=== PATIENT | female | born 1950 | race Caucasian/White ===

== ENCOUNTER 2018-12-11 18:37 | Emergency (ER) | payer MEDICARE ==
[2018-12-11 19:14] LABS: #Basophils 0.1 thou/uL (0.0-0.2); #Lymphocytes 1.5 thou/uL (1.20-3.40); #Monocytes 0.3 thou/uL (0.11-0.59); #Neutrophils 3.5 thou/uL (1.40-6.50); %Basophils 0.9 % (0.0-1.0); %Eosinophils 0.9 % (0.0-10.0); %Lymphocytes 27.3 % (21.0-51.0); %Monocytes 6.2 % (0.0-10.0); %Neutrophils 64.8 % (42.0-75.0); Hemoglobin 15.7 g/dL (12.0-16.0); Mean Corpuscular HGB CONC 30.6 g/dL (32.0-36.0); Mean Corpuscular Hemoglobin 30.2 pg (27.0-31.0); Mean Corpuscular Volume 98.8 fL (78.0-98.0); Mean Platelet Volume 7.9 fL (7.4-10.4); Platelet Count 167 thou/uL (130-400); RBC Distribution Width 15.1 % (11.5-14.5); White Blood Cell (WBC) Count 5.5 thou/uL (4.8-10.8)
[2018-12-11 19:28] LABS: ALT (SGPT) 15 U/L (8-55); AST (SGOT) 15 U/L (5-34); Albumin 4.2 g/dL (3.4-4.8); Alkaline Phosphatase 71 U/L (40-150); Anion Gap 14 mmol/L (10-20); BUN (Urea Nitrogen) 14 mg/dL (9.8-20.1); Bilirubin, Total 0.3 mg/dL (0.2-1.2); Calc. Creatinine Clearance 0 mL/min (70-130); Carbon Dioxide 31 mmol/L (23-31); Chloride 105 mmol/L (98-107); Estimated GFR-MDRD 71; Globulin 2.7 g/dL (2.4-3.5); Glucose 95 mg/dL (80-115); Potassium 3.5 mmol/L (3.5-5.1); Protein, Total 6.9 g/dL (6.0-8.3); Sodium 146 mmol/L (136-145)
[2018-12-11] MEDS ORDERED: Albuterol Sulfate 1.25 MG/3 ML NEB ONE (19:46)
[2018-12-11] MEDS ORDERED: Azithromycin 500 MG VIAL ONE (20:16)
[2018-12-11] MEDS ORDERED: methylPREDNISolone Sod Succ/PF 125 MG/2 ML VIAL ONE (20:16)
[2018-12-11] MEDS ORDERED: cefTRIAXone\\ROCEPHIN 1 GM VIAL ONE (20:40)
--- NOTE | 2018-12-11 23:05 | RAD ---
CHEST TWO VIEWS: 12/11/18 Comparison is made with a 02/21/12 study. There is a retrocardiac infiltrate seen best on the latera l view. I believe it is in the left lower lobe. The upper lobes are clear. The heart is normal in siz e. There is no congestive change or pleural effusion. Calcific changes are seen in the aortic arch. There is a single 2 to 3 mm density in the right upper lobe that is probably a calcified granuloma. I t is not of current concern. IMPRESSION: Presumed left lower lobe infiltrate, retrocardiac. Code T POS: HOME
== END 2018-12-11 20:05 | disposition short-term general hospital (02) ==
LOC: BURERS 18:37
DX: J44.1 Chronic obstructive pulmonary disease with (acute) exacerbation (principal); F20.9 Schizophrenia, unspecified; F41.9 Anxiety disorder, unspecified; F32.9 Major depressive disorder, single episode, unspecified; F17.210 Nicotine dependence, cigarettes, uncomplicated
CPT/HCPCS: 36415; 71046; 80053; 83605; 83880; 84484; 85025; 87040; 93005; 94640; 94760; 96365; 96375; J0456; J0696; J2930; J7620

== ENCOUNTER 2018-12-31 11:06 | Emergency (ER) | payer MEDICARE | END 2018-12-31 11:32 | disposition home or self-care (01) | LOC: BURERS 11:06 | DX: L30.9 Dermatitis, unspecified (principal); J44.9 Chronic obstructive pulmonary disease, unspecified; E03.9 Hypothyroidism, unspecified; F17.210 Nicotine dependence, cigarettes, uncomplicated; Z79.899 Other long term (current) drug therapy; Z79.51 Long term (current) use of inhaled steroids | CPT/HCPCS: 99282 ==

== ENCOUNTER 2019-06-17 12:15 | Emergency (ER) | payer MEDICARE ==
[2019-06-17 12:55] LABS: Bilirubin Negative (Negative); Blood, Urine Small (Negative); Clarity Turbid (Clear); Glucose, Urine (Dipstick) Negative (Negative); Leukocyte Large (Negative); Nitrite Negative (Negative); Protein, Urine (Dipstick) 100 mg/dL (Neg-Trace); Urobilinogen 0.2 mg/dL (Less than 2)
[2019-06-17 13:02] LABS: Bacteria/HPF 4+ HPF (None Seen); Mucous/LPF 1+ LPF (<2+); Trichomonas/HPF 2+ HPF (None Seen); WBC/HPF Greater Than 50 HPF (0-3)
== END 2019-06-17 13:22 | disposition home or self-care (01) ==
LOC: BURERS 12:15
DX: A59.9 Trichomoniasis, unspecified (principal); N39.0 Urinary tract infection, site not specified; E03.9 Hypothyroidism, unspecified; J44.9 Chronic obstructive pulmonary disease, unspecified; F17.210 Nicotine dependence, cigarettes, uncomplicated; F25.0 Schizoaffective disorder, bipolar type
CPT/HCPCS: 81003; 81015; 99283

== ENCOUNTER 2019-08-11 13:15 | Emergency (ER) | payer MEDICARE ==
[2019-08-11 14:29] LABS: #Eosinphils 0.1 thou/uL (0.0-0.7); #Lymphocytes 0.9 thou/uL (1.20-3.40); #Monocytes 0.3 thou/uL (0.11-0.59); #Neutrophils 2.6 thou/uL (1.40-6.50); %Lymphocytes 23.1 % (21.0-51.0); %Monocytes 6.6 % (0.0-10.0); %Neutrophils 67.3 % (42.0-75.0); Hemoglobin 13.9 g/dL (12.0-16.0); Mean Corpuscular Hemoglobin 29.6 pg (27.0-31.0); Mean Corpuscular Volume 98.8 fL (78.0-98.0); Mean Platelet Volume 8.1 fL (7.4-10.4); Platelet Count 153 thou/uL (130-400); RBC Distribution Width 14.3 % (11.5-14.5); Red Blood Cell (RBC) Count 4.69 mill/uL (4.20-5.40); White Blood Cell (WBC) Count 3.9 thou/uL (4.8-10.8)
[2019-08-11 14:37] LABS: Anion Gap 11 mmol/L (10-20); BUN (Urea Nitrogen) 8 mg/dL (9.8-20.1); Calc. Creatinine Clearance 0 mL/min (70-130); Calcium 8.9 mg/dL (7.8-10.44); Carbon Dioxide 34 mmol/L (23-31); Chloride 106 mmol/L (98-107); Estimated GFR-MDRD 83; Glucose 103 mg/dL (80-115); Sodium 147 mmol/L (136-145)
[2019-08-11 14:44] LABS: Platelet Morphology Comment Appears Adequate
--- NOTE | 2019-08-11 15:28 | CT ---
POSTCONTRAST SOFT TISSUE NECK CT WITH CONTRAST: HISTORY: Swelling and pain at the base of the neck, left anterior side. Vein keeps bulging out. COMPARISON: None. FINDINGS: Postcontrast soft tissue neck CT is performed in the axial plane. Three-dimensional reformatted image s are submitted for interpretation. FINDINGS: Visualized brain parenchyma is unremarkable. Visualized orbits are unremarkable. Adequate aeration of the visualized sinuses and mastoid air cells, with the exception left maxillary sinus which has a mucous retention cyst. The aerodigestive tract appears to be patent. No mucosal abnormality. No obvious masses in the oral c avity. Midline fatty raphae of the tongue is preserved. The epiglottis has a normal caliber. Preepiglottic fat is preserved. The supraglottic, glottic and subglottic larynx is unremarkable. Symmetric attenuation of the parotid and submandibular glands. Parapharyngeal fat is maintained. Grossly the great vessels of the neck are patent. There is mass effect upon the esophagus, likely due to medial deviation of both common carotid arteries. Mass effect upon the posterior left supraglottic larynx due to medial deviation of the left carotid artery is also noted. Symmetric attenuation of the paraspinal muscles, including the sternocleidomastoid muscles. Unremarkable thyroid gland. No evidence of lymphadenopathy by size criteria. Cervical spine vertebral body height is maintained and there is no fracture. Grade 1 anterolisthesis of C3 upon C4 and C4 upon C5. Upper mediastinum and lung apices are unremarkable. There is a palpable marker in the anterior right neck. At the level of the palpable marker, there is no abnormality. No lymphadenopathy. An incidental draining vein is noted. No evidence of thrombophlebitis. Additional markers are identified in the right supraclavicular region which are als o unremarkable. No abnormalities appreciated. IMPRESSION: Unremarkable postcontrast soft tissue neck CT. No abnormality at the level of the palpable marker. No te, there appear to be multiple, separate palpable markers present in the right neck. Transcribed Date/Time: 08/11/2019 3:47 PM
[2019-08-11] MEDS ORDERED: Iopamidol 370 76% 100 ML VIAL ONE (17:41)
--- NOTE | 2019-08-11 21:20 | RAD ---
PORTABLE CHEST: 08/11/19 Comparison is made with a prior examination of 12/11/18. The heart is normal in size. Calcification is seen in the aortic arch as before. The lungs are fully inflated and clear. There is no vascular congestion, edema, or pleural effusion. Old healed rib fract ures are present on the left and were seen previously. IMPRESSION: No acute thoracic findings. POS: HOME
== END 2019-08-11 15:41 | disposition home or self-care (01) ==
LOC: BURERS 13:15
DX: I88.9 Nonspecific lymphadenitis, unspecified (principal); E03.9 Hypothyroidism, unspecified; J44.9 Chronic obstructive pulmonary disease, unspecified; F31.9 Bipolar disorder, unspecified; F25.9 Schizoaffective disorder, unspecified; F17.210 Nicotine dependence, cigarettes, uncomplicated
CPT/HCPCS: 70491; 71045; 80048; 85025; 94640; 94760; J7620; Q9967